=== PATIENT | male | born 1990 | race Caucasian/White ===

== ENCOUNTER 2021-09-13 07:40 | Inpatient (IN) | payer MEDICAID, OTHER ==
[2021-09-13] MEDS ORDERED: diphenhydrAMINE 25 MG CAP PO PRN (18:13)
[2021-09-13] MEDS ORDERED: HALOPERIDOL LACTATE 5 MG/ML 1 ML VIAL IM PRN (18:13)
[2021-09-13] MEDS ORDERED: ACETAMINOPHEN TAB 325 MG TAB PO PRN (18:13)
[2021-09-13] MEDS ORDERED: MAGNESIUM HYDROXIDE 2,400 MG/10 ML CUP PO PRN (18:13)
[2021-09-13] MEDS ORDERED: haloperidoL 5 MG TAB PO PRN (18:13)
[2021-09-13] MEDS ORDERED: MAG HYDROX/AL HYDROX/SIMETH 30 ML CUP PO PRN (18:13)
[2021-09-13] MEDS ORDERED: LORazepam 2 MG/ML INJ IM PRN (18:13)
[2021-09-14] MEDS: DIVALPROEX 500 MG TABLET.DR PO SCH ×3 (10:06→19:54)
[2021-09-14] MEDS: FAMOTIDINE 20 MG TAB PO SCH ×3 (10:06→19:55)
[2021-09-14] MEDS: NICOTINE 14MG/24HR PATCH TRANSDERM SCH (10:08)
[2021-09-14] MEDS: DULoxetine HCL 30 MG CAPSULE.DR PO SCH (12:50)
--- NOTE | 2021-09-14 13:34 | P.HP ---
Psychiatric H&P - . H&P Date: 09/14/21 History & Physical: Allergies Allergy/AdvReac Type Severity Reaction Status Date / Time Fish Containing Products Allergy Unknown Verified 09/13/21 18:12 Fish Vital Signs Temp 97.9 F 09/14/21 09:25 Pulse 84 09/14/21 09:25 Resp 12 09/14/21 09:25 BP 120/67 09/14/21 09:25 Pulse Ox 96 09/14/21 09:25 FiO2 Intake & Output 09/13/21 09/14/21 09/14/21 18:59 06:59 18:59 Weight 95 kg 96.9 kg 09/14/21 12:22 IDENTIFYING DATA: Patient is a 31-year-old male currently homeless, was engaged, currently unemployed. Has no kids. HPI: Patient presented to the hospital as a transfer from [facility] [place]. Patient arrived on the unit early this morning. According to APS report patient was at home and had a suicide attempt overdosing on aspirin pills approximately 100 of them. Patient had endorsed that he caught his fiance cheating on him with his neighbor. Patient was admitted involuntarily however did sign voluntary. Patient is agreeable to speak to feature writer today. He appeared to be visibly upset and in distress. He was tearful during the interview. He claims that he is feeling depressed and feels "alone" he also endorsed hopelessness and helplessness. He states that he's been "doing too much drugs". He claims that he is unemployed at this time and has financial problems as well. He states that he is very upset about his relationship with his fiance and claims that he cannot go back there. He claims that he's been using significant amount of methamphetamine approximately 1 ounce a day and also using alcohol approximately 2 cases of beer a day however last drink was over 7 days ago. He states that he also smokes cigarettes. decreased sleep, decreased appetite. He is endorsing paranoia, no delusions. Patient denies any current suicidal or homicidal ideations intent or plan. At this time patient denies any auditory or visual hallucinations. Patient denies any flight of ideas racing thoughts and increased in goal directed behavior. PAST PSYCHIATRIC HISTORY: Patient states that he has a history of depression. He claims that he used to be on antidepressants in the past however cannot remember which one. He also states that he was on a medication for paranoia. He claims that he was admitted to [facility] one half years ago. Patient denies any psychiatric outpatient follow-up. He claims that he did try to overdose once in the past and also cut his wrist in the past. PMH: As per medicine H&P ALLERGIES: as per EMR CHEMICAL DEPENDENCY HISTORY: as per HPI FAMILY PSYCHIATRIC/SUBSTANCE USE HISTORY: denies SOCIAL HISTORY: Patient was born and raised in [place] and also in [place]. He states that he completed up to the 10th grade in school. 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 He states that he was charged in the past for assault with a deadly weapon and also sexual charges and [facility]. MENTAL STATUS EXAM: General Appearance: Patient appears to be well-built, bald, unshaven, multiple tattoos, stated age is alert, in distress and tearful. Patient appears to have poor hygiene and grooming. Behavior: Patient is seated without any agitated behavior. In distress, tearful. Attempts to cooperate. Speech: Patient's speech is fluent and nonpressured. [place]. Mood/Affect: Patient reports their mood is depressed, affect is congruent and constricted. Suicidality/Homicidality: Patient denies having any homicidal ideation intent or plan. Denies any suicidal ideations intent or plan Perceptions: Patient denies any visual hallucinations and denies any auditory hallucinations Though content/process: Patient is focused on his stressors, catastrophizing, goal oriented. Memory and concentration: AOX3, grossly intact for the purposes of this session. Can spell "WORLD" backwards Judgment and insight: poor STRENGTHS/WEAKNESSES: strength is that patient is resilient. Weakness is that patient has poor judgment and is impulsive INTELLECT: average IMPRESSIONS: Major depressive disorder, with psychotic features Methamphetamine use disorder severe Alcohol use disorder severe Nicotine dependence PLAN: -Patient is admitted under voluntary status to [facility] for stabilization of psychiatric symptoms and safety. Patient has signed adult voluntary form and medication consent and is placed in patient's chart. -Medications : Will start patient on Cymbalta 30 mg daily for mood/anxiety/pain. Start Zyprexa 5 mg daily at bedtime for mood adjunct/psychosis. -Ativan and Haldol PRN for agitation/aggression -Patient was counselled on substance abuse and desired to cut back on use -Patient was informed of the risks, benefits and side effects of the medication and patient verbally consented to taking the medications. Patient signed med consent form and was placed in chart. -Internal Medicine consult to perform medical evaluation and physical. -NRT - nicotine patch -SW on board for discharge planning. Encourage patient to participate in groups to work on coping skills. 09/14/21 13:20 09/14/21 13:33
--- NOTE | 2021-09-14 17:36 | P.CONS ---
History of Present Illness - Reason for Consult Consult date: 09/14/21 Medical management - Chief Complaint Depression - History of Present Illness History of present illness: 31-year-old male with past medical history significant for depression, seizure disorder, polysubstance abuse including alcohol and methamphetamine. Patient presented to the hospital as a transfer from [facility] in [place]. Patient admitted to inpatient psych unit at [facility] today. According to APS report patient was at home and had a suicide attempt overdosing on aspirin pills approximately 100 of them. [facility]. Patient denies any chest pain or shortness of breath. He denies any nausea vomiting or abdominal pain. He denied any fever or chills. Denies recent travel sick contact PAST PSYCHIATRIC HISTORY: Patient states that he has a history of depression. He claims that he used to be on antidepressants in the past however cannot remember which one. He also states that he was on a medication for paranoia. He claims that he was admitted to [facility] one half years ago. Patient denies any psychiatric outpatient follow-up. He claims that he did try to overdose once in the past and also cut his wrist in the past. ALLERGIES: as per EMR FAMILY HISTORY LUNG CANCER IN HIS FATHER SOCIAL HISTORY: Patient was born and raised in [place] and also in [place]. He states that he completed up to the 10th grade in school. 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 He states that he was charged in the past for assault with a deadly weapon and also sexual charges and [facility]. Patient smokes 2 packs per day. He also stated that he does methamphetamine. 30 packs of beer a day and the fifth of [employer] He stated that he was drinking since he was a child. Review of systems: All 14 review of systems evaluated and all negative except for above. Physical examination: General: non toxic, no distress, appears at stated age Derm: warm, dry Head: atraumatic, normocephalic, symmetric Eyes: EOMI, no lid lag, anicteric sclera Mouth: no lip lesion, mucus membranes moist Cardiovascular: S1S2 reg, no murmur, positive posterior tibial pulse bilateral, Lungs: CTA bilateral, no rhonchi, no rales , no accessory muscle use Abdominal: soft, nontender to palpation, no guarding, no appreciable organomegaly Ext: no gross muscle atrophy, no edema, no contractures Neuro: CN II-XI grossly intact, no focal neuro deficits Psych: Alert, oriented, appropriate affect Assessment and plan: #Bipolar disorder #Major depression #Suicidal attempt -Management per psychiatry #History of seizure disorder -Patient on Depakote #Nicotine addiction -Patient smokes 2 packs per day -Recommend nicotine patch 21 mg daily #Polysubstance abuse including alcohol and methamphetamine -Patient was counseled -Psychiatry managing Medications and Allergies Allergies Allergy/AdvReac Type Severity Reaction Status Date / Time Fish Containing Products Allergy Unknown Verified 09/13/21 18:12 [Fish] Physical Exam Vitals: Vital Signs Temp Pulse Resp BP Pulse Ox 09/14/21 09:25 97.9 F 84 12 120/67 96 Intake and Output 09/14/21 09/14/21 09/14/21 06:59 14:59 22:59 Other: Weight 96.9 kg
[2021-09-14] MEDS: OLANZapine 5 MG TAB PO SCH (19:55)
--- NOTE | 2021-09-14 20:16 | XR ---
EXAMINATION TYPE: XR shoulder complete LT DATE OF EXAM: 09/14/2021 COMPARISON: NONE HISTORY: Pain TECHNIQUE: Shoulder examined in 3 projections FINDINGS: The humeral head articulates with the glenoid. Is depression of the acromion in relation to the distal clavicle a 1.5 cm. This can be compatible wit h a grade 3 separation. There may be a small avulsion suspected from the acromion inferior to the cla vicle. No additional dislocations are evident. A follow up study can be performed 7-10 days from acute trauma for continued pain. IMPRESSION: 1. Grade 3 separation of the left acromioclavicular junction. A small avulsion appears to be from the distal clavicle.
[2021-09-15] MEDS: FAMOTIDINE 20 MG TAB PO SCH ×2 (08:38→20:16)
[2021-09-15] MEDS: DIVALPROEX 500 MG TABLET.DR PO SCH ×2 (08:38→20:16)
[2021-09-15] MEDS: DULoxetine HCL 30 MG CAPSULE.DR PO SCH (08:38)
[2021-09-15] MEDS: NICOTINE 14MG/24HR PATCH TRANSDERM SCH (08:39)
--- NOTE | 2021-09-15 11:14 | P.CNOR ---
History of Present Illness - [facility] Consult date: 09/15/21 Consult reason: joint pain (Left shoulder pain.) History of present illness: This is a 31-year-old male with recent history of left shoulder injury. He states that about 2 weeks ago he was helping a neighbor up after a fall. He states he jumped over a fence and fell onto his left shoulder. He had immediate pain. He has recently been admitted to the mental health unit at [facility] and we're consulted for orthopedic evaluation of the left shoulder. Medications and Allergies Allergies Allergy/AdvReac Type Severity Reaction Status Date / Time Fish Containing Products Allergy Unknown Verified 09/13/21 18:12 [Fish] Physical Examination This is a pleasant 31-year-old male in no acute distress. He is alert and oriented 3. Exam of the left upper extremity reveals no erythema or ecchymosis. There is no soft tissue swelling noted. There is tenderness with palpation of the distal clavicle and the acromioclavicular joint. There is no palpable step-off noted. He has full for flexion and abduction of the shoulder. He has full external and internal rotation. Full elbow motion without difficulty or pain. Neurovascular status the upper extremity is intact. Results X-rays of the left shoulder reveal a slight elevation of the clavicle at the acromioclavicular joint. There is a small chip fracture noted. Findings are consistent with a grade 3 AC separation. No other bony abnormality is noted. Assessment and Plan (1) AC separation, type 3 Current Visit: Yes Status: Acute Code(s): S43.109A - UNSP DISLOCATION OF UNSP ACROMIOCLAVICULAR JOINT, INIT SNOMED Code(s): 138567302 (2) Left shoulder pain Current Visit: Yes Status: Acute Code(s): M25.512 - PAIN IN LEFT SHOULDER SNOMED Code(s): 34141728 Plan: The clinical and x-ray findings are discussed with the patient. There is no treatment indicated at this time. He is to continue to work on range of motion exercises. He may take are appropriate as needed for pain. Follow-up in one month.
--- NOTE | 2021-09-15 15:43 | P.PN ---
Progress Note - Text Progress Note Date: 09/15/21 Interval History: Patient was in group, and was directable and agreeable to speak with business writer in the office. He reports he the groups and interactions with staff have been helpful, and helped him recognize his addiction and the need for residential substance abuse treatment after discharge. He reports his drugs of choice are methamphetamine and alcohol. At this time patient denies any suicidal, or homicidal ideations, intent or plan. Patient denies any auditory or visual h allucinations and denies any paranoia or delusions. Patient denies any side effects from the medications and has been compliant with meds. Mental Status Exam: General Appearance: Patient appears to be stated age, dressed in clean, casual attire. Orientation: He is alert, oriented to person, place, time and situation. Behavior: Patient is calmly seated without any agitated behavior; cooperative. Speech: Patient's speech is fluent and nonpressured. Mood/Affect: Mood is improving mildly, affect is congruent and constricted. Suicidality/Homicidality: Patient denies having any suicidal or homicidal ideation intent or plan. Perceptions: Patient denies any visual hallucinations and denies any auditory hallucinations. Though content/process: There is no evidence of any delusional thought content and thought process is linear and goal-directed. Memory and concentration: Grossly intact for the purposes of this session Judgment and insight: Improving mildly Assessment Major depressive disorder, with psychotic features Methamphetamine use disorder severe Alcohol use disorder severe Nicotine dependence Plan: -Patient continues to meet criteria for inpatient psychiatric admission for symptom stabilization and safety. Patient has signed adult voluntary form and medication consent and was placed in patient's chart. -Medications: Continue current medications at same doses for now with plan to adjust as tolerated. -When necessary Ativan and Haldol for agitation/aggression. -NRT - nicotine patch -SW on board for discharge planning. Encouraged the patient to participate in milieu.
[2021-09-15] MEDS: OLANZapine 5 MG TAB PO SCH (20:16)
[2021-09-16] MEDS: NICOTINE 14MG/24HR PATCH TRANSDERM SCH (08:23)
[2021-09-16] MEDS: FAMOTIDINE 20 MG TAB PO SCH ×2 (08:24→22:19)
[2021-09-16] MEDS: DULoxetine HCL 30 MG CAPSULE.DR PO SCH (08:24)
[2021-09-16] MEDS: DIVALPROEX 500 MG TABLET.DR PO SCH ×2 (08:24→22:19)
--- NOTE | 2021-09-16 09:47 | P.PN ---
Progress Note - Text Progress Note Date: 09/16/21 Interval History: Patient was laying in bed this morning and was agreeable to speak to travel writer in the office. He appears to have a improvement in his affect however claims that he still feeling somewhat depressed. He claims that he is gradually improving in terms of his medications and continues to seek help. He admits that he has a problem with using methamphetamine and believes that he is unsafe to be discharged as he has "nowhere to go". He claims that he will relapse if he leaves the hospital and become suicidal again. Patient was given the number for intake to call for rehab and patient called later on this morning to do the intake over the phone. He claims that he is sleeping better with the medications and trying to go to some groups. He is not reporting any side effects at this time. Denying any delusions or paranoia. Fair appetite. At this time patient denies any suicidal, or homicidal ideations, intent or plan. Patient denies any auditory or visual hallucinations. Patient has been compliant with meds. Mental Status Exam: General Appearance: Patient appears to be stated age, dressed in clean, casual attire. Behavior: Patient is calmly seated without any agitated behavior; more cooperative. Speech: Patient's speech is fluent and nonpressured. Mood/Affect: Mood is depressed however is improving mildly, affect is congruent Suicidality/Homicidality: Patient denies having any suicidal or homicidal ideation intent or plan. Perceptions: Patient denies any visual hallucinations and denies any auditory hallucinations. Though content/process: There is no evidence of any delusional thought content and thought process is linear and goal-directed. Memory and concentration: Grossly intact for the purposes of this session, alert and oriented 3. Judgment and insight: Improving mildly Assessment Major depressive disorder, with psychotic features Methamphetamine use disorder severe Alcohol use disorder severe Nicotine dependence Plan: -Patient continues to meet criteria for inpatient psychiatric admission for symptom stabilization and safety. Patient has signed adult voluntary form and medication consent and was placed in patient's chart. -Medications: Continue with Cymbalta 30 mg daily for mood/anxiety/pain, Zyprexa 5 mg daily at bedtime for mood adjunct/psychosis/insomnia. -When necessary Ativan and Haldol for agitation/aggression. -NRT - nicotine patch -SW on board for discharge planning. Encouraged the patient to participate in milieu. Patient made the call to intake today to get into rehab. He is high risk for relapse on substances if not discharged directly to rehab. SW to follow up with intake date for rehab. Likely discharge early next week.
[2021-09-16] MEDS: IBUPROFEN 800 MG TAB PO PRN (18:37)
[2021-09-16] MEDS: OLANZapine 5 MG TAB PO SCH (22:19)
[2021-09-17] MEDS: DIVALPROEX 500 MG TABLET.DR PO SCH ×2 (08:24→20:12)
[2021-09-17] MEDS: DULoxetine HCL 30 MG CAPSULE.DR PO SCH (08:24)
[2021-09-17] MEDS: FAMOTIDINE 20 MG TAB PO SCH ×2 (08:24→20:12)
[2021-09-17] MEDS: NICOTINE 14MG/24HR PATCH TRANSDERM SCH (08:24)
--- NOTE | 2021-09-17 16:51 | P.PN ---
Progress Note - Text Progress Note Date: 09/17/21 Interval History: Patient was laying in bed this morning and was agreeable to speak to board writer in the office. He reports good mood, feels his medications are working and he is "feeling a lot better", reports good sleep and good appetite. He is attending groups, and finds them helpful. He is medication compliant and denies any side effects at this time. He denies any delusions or paranoia. At this time patient denies any suicidal, or homicidal ideations, intent or plan. Patient denies any auditory or visual hallucinations. He has been calm and cooperative with staff and peers on the unit. Mental Status Exam: General Appearance: Patient appears to be stated age, dressed in clean, casual a ttire. Orientation: Alert and oriented to person, place, time, and situation. Behavior: Patient is calmly seated without any agitated behavior; cooperative. Speech: Patient's speech is fluent and non-pressured. Mood/Affect: Mood is "good", affect is congruent Suicidality/Homicidality: Patient denies having any suicidal or homicidal ideation intent or plan. Perceptions: Patient denies any visual hallucinations and denies any auditory hallucinations. Though content/process: There is no evidence of any delusional thought content and thought process is linear and goal-directed. Memory and concentration: Grossly intact for the purposes of this session. Judgment and insight: Improving mildly Assessment Major depressive disorder, with psychotic features Methamphetamine use disorder severe Alcohol use disorder severe Nicotine dependence Plan: -Patient continues to meet criteria for inpatient psychiatric admission for symptom stabilization and safety. Patient has signed adult voluntary form and medication consent and was placed in patient's chart. -Medications: Continue with Cymbalta 30 mg daily for mood/anxiety/pain, Zyprexa 5 mg daily at bedtime for mood adjunct/psychosis/insomnia. -When necessary Ativan and Haldol for agitation/aggression. -NRT - nicotine patch -SW on board for discharge planning. Encouraged the patient to participate in milieu. Patient made the call to intake today to get into rehab. He is high risk for relapse on substances if not discharged directly to rehab. SW to follow up with intake date for rehab. Likely discharge early next week.
[2021-09-17] MEDS: LORazepam 1 MG TAB PO PRN (18:59)
[2021-09-17] MEDS: OLANZapine 5 MG TAB PO SCH (20:12)
[2021-09-18] MEDS: NICOTINE 14MG/24HR PATCH TRANSDERM SCH (08:40)
[2021-09-18] MEDS: FAMOTIDINE 20 MG TAB PO SCH ×2 (08:40→22:15)
[2021-09-18] MEDS: DULoxetine HCL 30 MG CAPSULE.DR PO SCH (08:40)
[2021-09-18] MEDS: DIVALPROEX 500 MG TABLET.DR PO SCH ×2 (08:40→22:15)
[2021-09-18] MEDS: LORazepam 1 MG TAB PO PRN ×2 (18:46→22:17)
[2021-09-18] MEDS ORDERED: diphenhydrAMINE 50 MG/ML 1 ML VIAL IM STA (21:13)
[2021-09-18] MEDS ORDERED: methylPREDNISolone SOD SUCCIN 125 MG in SODIUM CHLORIDE 0.9% 100 ML IVPB STA (21:57)
[2021-09-18] MEDS ORDERED: methylPREDNISolone SOD SUCCI 125 MG/2 ML VIAL IVP ONE (21:59)
--- NOTE | 2021-09-18 22:03 | P.PN ---
Progress Note - Text Progress Note Date: 09/18/21 Interval History: Patient was agreeable to speak to telegraphic typewriter repairer in the office. He appeared restless, a nd his face appears red with swelling under his eyes, redness and itching of both arms and legs. He reports his throat feels like it is closing, hard to swallow. He is allergic to fish, and fish items were served on the unit today; he did not eat fish, but others were eating fish around him. He was immediately given Benadryl 50 mg IM x 1 and a total of Epinephrine 0.5 mg (0.3 mg IM + 0.2 mg IV). [facility] was called and responded immediately, 1L IV NS bolus, medical doctor arrived to assess patient, and ordered Solumedrol 125 mg IV x 1. Patient responded well to initial treatment. Patient reports good mood, good sleep and good appetite. He is attending groups. He is medication compliant and denies any side effects at this time. He denies any delusions or paranoia. At this time patient denies any suicidal, or homicidal ideations, intent or plan. Patient denies any auditory or visual hallucinations. He has been calm and cooperative with staff and peers on the unit. Mental Status Exam: General Appearance: Patient appears to be stated age, dressed in clean, casual attire. Redness on face, swelling under eyes, redness on arms/legs. Orientation: Alert and oriented to person, place, time, and situation. Behavior: Patient is calmly seated without any agitated behavior; cooperative. Speech: Patient's speech is fluent and non-pressured. Mood/Affect: Mood is "good", affect is congruent Suicidality/Homicidality: Patient denies having any suicidal or homicidal ideation intent or plan. Perceptions: Patient denies any visual hallucinations and denies any auditory hallucinations. Though content/process: There is no evidence of any delusional thought content and thought process is linear and goal-directed. Memory and concentration: Grossly intact for the purposes of this session. Judgment and insight: Improving mildly Assessment Major depressive disorder, with psychotic features Methamphetamine use disorder severe Alcohol use disorder severe Nicotine dependence Anaphylactic reaction - responded to Benadryl, Epinephrine, Solumedrol, IV fluids. Plan: -Patient continues to meet criteria for inpatient psychiatric admission for symptom stabilization and safety. Patient has signed adult voluntary form and medication consent and was placed in patient's chart. -Medications: Continue with Cymbalta 30 mg daily for mood/anxiety/pain. Continue Zyprexa 5 mg daily at bedtime for mood adjunct/psychosis/insomnia. He was given Benadryl 50 mg IM x 1, Epinephrine 0.5 mg (0.3 mg IM + 0.2 mg IV), 1L IV NS bolus, Solumedrol 125 mg IV x 1. He will be placed on sitter for monitoring for the next 4 hours. -When necessary Ativan and Haldol for agitation/aggression. -NRT - nicotine patch -SW on board for discharge planning. Encouraged the patient to participate in milieu. Patient made the call to intake today to get into rehab. He is high risk for relapse on substances if not discharged directly to rehab. SW to follow up with intake date for rehab. Likely discharge early next week.
[2021-09-18] MEDS: OLANZapine 5 MG TAB PO SCH (22:15)
--- NOTE | 2021-09-19 01:49 | P.EN ---
A- team: Indication: Anaphylaxis Arrived on Scene to find: Anxious appearing patient Vital signs reviewed: BP 142/84, pulse 112, respiratory rate 24, SpO2 96% on room air Patient seen and examined at bedside. The patient reports that he believes he may have accidentally consumed some fish from the plate of another patient sitting across from him at dinner. He had complained to the nursing staff of developing a pruritic rash and facial swelling. The patient was noted to be likely having an ALLERGIC reaction, for which IV epinephrine and IV Benadryl were administered. Upon arrival at the scene, the patient's symptoms had resolved. He reported feeling anxious but otherwise denied any additional complaints. General: [non toxic], [no distress], [appears at stated age] Derm: [warm], [dry] Head: [atraumatic], [normocephalic], [symmetric] Eyes: [EOMI], [no lid lag], [anicteric sclera] Mouth: [no lip lesion], [mucus membranes moist] Cardiovascular: [S1S2 reg], [no murmur], [positive posterior tibial pulse bilateral], Lungs: [CTA bilateral], [no rhonchi, no rales] , [no accessory muscle use] Abdominal: [soft], [ nontender to palpation], [no guarding], [no appreciable organomegaly] Ext: [no gross muscle atrophy], [no edema], [no contractures] Neuro: [ CN II-XI grossly intact], [no focal neuro deficits] Psych: [Alert], [oriented], anxious Assessment: Anaphylaxis, resolved Plan: 0.5 mg of IM epinephrine administered Solu-Medrol 125 mg IV push ordered 50 mg IV push Benadryl administered Continue to monitor the patient closely with a sitter 1 L normal saline bolus ordered A Total of 35 minutes of critical care time was spent on the complex care of this patient.
[2021-09-19 03:03] VITALS: RESP 16
[2021-09-19 07:13] VITALS: TEMP 97.5
[2021-09-19] MEDS: NICOTINE 14MG/24HR PATCH TRANSDERM SCH (08:28)
[2021-09-19] MEDS: DIVALPROEX 500 MG TABLET.DR PO SCH (08:30)
[2021-09-19] MEDS: DULoxetine HCL 30 MG CAPSULE.DR PO SCH (08:30)
[2021-09-19] MEDS: FAMOTIDINE 20 MG TAB PO SCH (08:30)
[2021-09-19] MEDS: IBUPROFEN 800 MG TAB PO PRN (08:30)
[2021-09-19 09:20] VITALS: BP 141/69; PULSE 102
[2021-09-19] MEDS: LORazepam 1 MG TAB PO PRN (09:20)
[2021-09-19] MEDS ORDERED: diphenhydrAMINE 50 MG/ML 1 ML VIAL IM STA ×2 (10:45→15:13)
[2021-09-19] MEDS ORDERED: predniSONE 20 MG TAB PO SCH (11:00)
[2021-09-19] MEDS ORDERED: diphenhydrAMINE 25 MG CAP PO SCH ×2 (11:00→12:00)
--- NOTE | 2021-09-19 11:05 | P.PN ---
Progress Note - Text Progress Note Date: 09/19/21 Interval History: Patient was seen participating in group today and was agreeable to seek the wr iter. Patient claims that he is feeling a little bit irritable today however does claim that the medications are helping him overall. He states that he is able to sleep fairly throughout the night. Patient claims that he must have consumed some fish and he is very ALLERGIC to it last night. He states that he required Benadryl and steroids and was starting to get some swelling under his eyes earlier this morning. He was requesting medications to help him with withdrawal symptoms. He continues to be focused on going to rehab once he is discharged. He claims that his mood and anxiety have been improving. He is going to groups. Denying any delusions or paranoia. Fair appetite. At this time patient denies any suicidal, or homicidal ideations, intent or plan. Patient denies any auditory or visual hallucinations. Patient has been compliant with meds. Mental Status Exam: General Appearance: Patient appears to be stated age, dressed in clean, casual attire. Behavior: Patient is calmly seated without any agitated behavior; more cooperative. Speech: Patient's speech is fluent and nonpressured. Mood/Affect: Mood is depressed however is improving mildly, affect is congruent Suicidality/Homicidality: Patient denies having any suicidal or homicidal ideation intent or plan. Perceptions: Patient denies any visual hallucinations and denies any auditory hallucinations. Though content/process: There is no evidence of any delusional thought content and thought process is linear and goal-directed. Memory and concentration: Grossly intact for the purposes of this session, alert and oriented 3. Judgment and insight: Improving mildly Assessment Major depressive disorder, with psychotic features Methamphetamine use disorder severe Alcohol use disorder severe Nicotine dependence Plan: -Patient continues to meet criteria for inpatient psychiatric admission for symptom stabilization and safety. Patient has signed adult voluntary form and medication consent and was placed in patient's chart. -Medications: Cymbalta 30 mg daily for mood/anxiety/pain, Zyprexa 5 mg daily at bedtime for mood adjunct/psychosis/insomnia. added clonidine 0.1 bid prn for withdrawal sx. -benadryl prn for allergic reaction. -When necessary Ativan and Haldol for agitation/aggression. -NRT - nicotine patch -SW on board for discharge planning. Encouraged the patient to participate in milieu. He is high risk for relapse on substances if not discharged directly to rehab. SW to follow up with intake date for rehab. Likely discharge tomorrow if bed is available.
[2021-09-19] MEDS ORDERED: cloNIDine HCL 0.1 MG TAB PO PRN (11:11)
[2021-09-19 15:26] LABS: Glucose,Whole Blood 192 mg/dL (70-110)
== END 2021-09-19 15:26 | DRG 885 ==
LOC: 3MHU 09-14 09:18
PROVIDERS: ADMIT Psychiatry & Neurology Psychiatry; ATTEND Psychiatry & Neurology Psychiatry
DX: F32.3 Major depressive disorder, single episode, severe with psychotic features (principal); F10.20 Alcohol dependence, uncomplicated; F15.90 Other stimulant use, unspecified, uncomplicated; F17.210 Nicotine dependence, cigarettes, uncomplicated; F31.9 Bipolar disorder, unspecified; F41.9 Anxiety disorder, unspecified; G40.909 Epilepsy, unspecified, not intractable, without status epilepticus; L29.9 Pruritus, unspecified; S43.109A Unspecified dislocation of unspecified acromioclavicular joint, initial encounter; W19.XXXA Unspecified fall, initial encounter; Z56.0 Unemployment, unspecified; Z59.00 Homelessness unspecified

== ENCOUNTER 2021-09-19 15:26 | Inpatient (IN) | payer OTHER ==
[2021-09-19] MEDS ORDERED: MELATONIN 3 MG TABLET PO PRN (15:41)
[2021-09-19] MEDS ORDERED: NALOXONE 0.4 MG/ML 1 ML VIAL IV PRN (15:41)
--- NOTE | 2021-09-19 16:05 | P.HPIM ---
History of Present Illness H&P Date: 09/19/21 Chief Complaint: ALLERGIC reaction Patient is a 31-year-old male with a past medical history significant for depression, seizure disorder, polysubstance abuse including alcohol and methamphetamine and anaphylactic reaction due to fish. Patient was admitted to the psych unit for depression and suicide attempt. On 09/18/2021 around midnight patient had an anaphylactic reaction and the patient was given epinephrine steroid and Benadryl. Patient states that other patients were eating fish around him and he denies eating any fish. Of note patient told the physician who saw him at midnight that he actually ate some of the fish from the other patients. In the morning before he got his medications he was breaking into hives and felt as if his throat was closing and was having difficulty breathing so he was again given epinephrine steroid and Benadryl. Later in the afternoon patient was having the symptoms again and was again given epinephrine steroid and Benadryl. I told staff to transfer him to [facility]. I did speak to the patient partner who recommended no ICU at this time but to notify if patient's symptoms worsened. Review of Systems 10 ROS reviewed and are negative except as noted in HPI Medications and Allergies Allergies Allergy/AdvReac Type Severity Reaction Status Date / Time Fish Containing Products Allergy Unknown Verified 09/13/21 18:12 [Fish] Physical Exam Osteopathic Statement: *. No significant issues noted on an osteopathic structural exam other than those noted in the History and Physical/Consult. Vitals: Vital Signs Temp Pulse Resp BP Pulse Ox FiO2 09/19/21 15:48 98.2 F 115 H 24 121/56 96 35 Intake and Output 09/19/21 09/19/21 09/19/21 06:59 14:59 22:59 Other: Weight 95.254 kg General: [Alert and oriented, well nourished, mild respiratory distress]. Eye: [PERRL, EOMI, normal conjunctiva]. HENT: [Normocephalic, clear tympanic membranes, normal hearing, moist oral mucosa, no scleral icterus, no sinus tenderness]. Neck: [Supple, non-tender, no carotid bruits, no JVD, no lymphadenopathy]. Lungs: [Clear to auscultation and percussion] Heart: [Normal rate, regular rhythm, no murmur, gallop or edema]. Abdomen: [Soft, non-tender, non-distended, normal bowel sounds, no masses]. Musculoskeletal: [Normal range of motion and strength, no tenderness or swelling]. Skin: [Hives on chest and arms, swelling and puffiness around the eyes]. Neurologic: [Awake, alert, and oriented X3, CN II-XII intact]. Psychiatric: [Cooperative, appropriate mood and affect]. Assessment and Plan Assessment: #Multiple ALLERGIC reactions possible anaphylactic reactions in the past 24 hours -Suspect due to possible cross-contamination with fish as other patients around him had fish for dinner. This was almost 12 hours ago -We'll monitor patient closely on 3 S. -We'll start Benadryl, Solu-Medrol and Pepcid -IV fluids -Albuterol inhaler as needed -If patient continues to have ALLERGIC reactions after 24 hours we'll have to look for another etiology of his ALLERGIES. For now we'll resume his same meds he was getting the psych unit. #Depression with psychotic features -Resume Zyprexa and Cymbalta -Patient currently denies any suicidal or homicidal idealization so no need for surgery at this time -Consult psychiatry #Methamphetamine use disorder Alcohol use disorder -Resume Ativan as needed #Tobacco abuse -Nicotine patch CODE STATUS:full code DVT prophylaxis: mechanical Anticipated length of stay > than [address]: home A total of 50 minutes was spent on the care of this complex patient more than 50% of the time was spent in counseling and care coordination.
[2021-09-19] MEDS: LORazepam 1 MG TAB PO PRN ×2 (16:18→21:50)
[2021-09-19] MEDS: ALBUTEROL NEBULIZED 2.5 MG/3 ML INHALATION PRN (19:32)
[2021-09-19] MEDS ORDERED: SODIUM CHLORIDE 0.9% IVPB SCH (21:00)
[2021-09-19] MEDS ORDERED: METHYLPREDNISOLONE SOD SUCCIN IVPB SCH (21:00)
[2021-09-19] MEDS: diphenhydrAMINE 25 MG CAP PO SCH (21:12)
[2021-09-19] MEDS: DIVALPROEX 500 MG TABLET.DR PO SCH (21:12)
[2021-09-19] MEDS: FAMOTIDINE 20 MG TAB PO SCH (21:12)
[2021-09-19] MEDS: SODIUM CHLORIDE 0.9% 1,000 ML IV SCH ×2 (21:12→22:44)
[2021-09-19] MEDS: OLANZapine 5 MG TAB PO SCH (21:50)
[2021-09-20] MEDS: SODIUM CHLORIDE 0.9% 1,000 ML IV SCH ×3 (05:39→23:03)
[2021-09-20] MEDS: ALBUTEROL NEBULIZED 2.5 MG/3 ML INHALATION PRN ×3 (07:37→20:34)
[2021-09-20] MEDS: DULoxetine HCL 30 MG CAPSULE.DR PO SCH (09:29)
[2021-09-20] MEDS: DIVALPROEX 500 MG TABLET.DR PO SCH ×2 (09:29→20:52)
[2021-09-20] MEDS: FAMOTIDINE 20 MG TAB PO SCH ×2 (09:29→20:52)
[2021-09-20] MEDS: methylPREDNISolone SOD SUCCI 40 MG/ML 1 ML VIAL IV SCH ×2 (09:29→20:52)
[2021-09-20] MEDS: diphenhydrAMINE 25 MG CAP PO SCH ×2 (09:29→20:52)
[2021-09-20] MEDS: NICOTINE 21MG/24HR PATCH TRANSDERM SCH (09:29)
--- NOTE | 2021-09-20 11:27 | P.PN ---
Subjective Progress Note Date: 09/20/21 Pt is doing well today, swelling in face has resolved. Requiring minimal oxygen, will monitor overnight and downtitrate as able. Plan for d/c to rehab tomorrow. Gen: awake, alert HEENT: normocephalic, atraumatic, good hearing acuity, moist mucous membranes Resp: good air exchange, breathing comfortably with no accessory muscle use CVS: good distal perfusion x 4, GI: soft, NTTP, ND : no SPT, no CVAT, sinclair catheter not present MSK: no pitting edema, no clubbing Neuro: non-focal, moving all extremities Psych: cooperative, euthymic mood Assessment/plan: #Multiple ALLERGIC reactions possible anaphylactic reactions in the past 24 hours -Suspect due to possible cross-contamination with fish as other patients around him had fish for dinner. This was almost 12 hours ago -We'll monitor patient closely on 3 S. -We'll start Benadryl, Solu-Medrol and Pepcid -IV fluids -Albuterol inhaler as needed -If patient continues to have ALLERGIC reactions after 24 hours we'll have to look for another etiology of his ALLERGIES. For now we'll resume his same meds he was getting the psych unit. #Depression with psychotic features -Resume Zyprexa and Cymbalta -Patient currently denies any suicidal or homicidal idealization so no need for surgery at this time -Consult psychiatry #Methamphetamine use disorder Alcohol use disorder -Resume Ativan as needed #Tobacco abuse -Nicotine patch CODE STATUS:full code DVT prophylaxis: mechanical Anticipated length of stay > than [address]: home Objective - Vital Signs Vital signs: Vital Signs Temp 97.3 F L 09/20/21 08:00 Pulse 108 H 09/20/21 08:00 Resp 16 09/20/21 08:00 BP 119/73 09/20/21 08:00 Pulse Ox 97 09/20/21 08:00 FiO2 35 09/20/21 07:37 Intake & Output 09/19/21 09/20/21 09/20/21 18:59 06:59 18:59 Intake Total 10 240 Output Total 450 1000 1300 Balance -450 990 -1060 Weight 95.254 kg Intake: IV 10 Invasive Line 1 10 Oral 240 Output: Urine 450 1000 1300 Other: Voiding Method Urinal
[2021-09-20] MEDS: LORazepam 1 MG TAB PO PRN ×2 (12:57→21:00)
--- NOTE | 2021-09-20 14:26 | P.CN ---
Psychiatric Consult - . Consult date: 09/20/21 Consult:: 09/20/21 13:04 IDENTIFYING DATA: Patient is a 31-year-old male currently homeless, was engaged, currently unemployed. Has no kids. HPI: Patient was seen today for psych follow up as patient was initially on the MHU and transferred off yesterday due to an allergic reaction. PAtient was given steroids and benadryl and monitored on the med floors. initially patient was seen by financial underwriter for psych evaluation for admission "Patient presented to the hospital as a transfer from [facility] in [place]. Patient arrived on the unit early this morning. According to EPS report patient was at home and had a suicide attempt overdosing on aspirin pills approximately 100 of them. Patient had endorsed that he caught his fiance cheating on him with his neighbor. Patient was admitted involuntarily however did sign voluntary. Patient is agreeable to speak to financial underwriter today. He appeared to be visibly upset and in distress. He was tearful during the interview. He claims that he is feeling depressed and feels "alone" he also endorsed hopelessness and helplessness. He states that he's been "doing too much drugs". He claims that he is unemployed at this time and has financial problems as well. He states that he is very upset about his relationship with his fiance and claims that he cannot go back there. He claims that he's been using significant amount of methamphetamine approximately 1 ounce a day and also using alcohol approximately 2 cases of beer a day however last drink was over 7 days ago. He states that he also smokes cigarettes. decreased sleep, decreased appetite. He is endorsing paranoia, no delusions." Today patient was seen laying in the bed and was agreeable to speak to financial underwriter. He states that he is doing "much better" today and states that he is not having any mood or anxiety issues today. He states that he feels medications have been helping him. He claims that he is still interested in going to rehab and will likely go to more. He claims that he is able to sleep fairly last night with Benadryl. His appetite is fair. He is denying any auditory or visual hallucinations today. He is denying any suicidal or homicidal ideations intent or plan. Patient has a hsitory of using etoh and meth. PAST PSYCHIATRIC HISTORY: Patient states that he has a history of depression. He claims that he used to be on antidepressants in the past however cannot remember which one. He also states that he was on a medication for paranoia. He claims that he was admitted to [facility] one half years ago. Patient denies any psychiatric outpatient follow-up. He claims that he did try to overdose once in the past and also cut his wrist in the past. PMH: As per medicine H&P ALLERGIES: as per EMR CHEMICAL DEPENDENCY HISTORY: as per HPI FAMILY PSYCHIATRIC/SUBSTANCE USE HISTORY: denies SOCIAL HISTORY: Patient was born and raised in [place] and also in [facility]. He states that he completed up to the 10th grade in school. 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 He states that he was charged in the past for assault with a deadly weapon and also sexual charges and spent around 15 years in alf. MENTAL STATUS EXAM: General Appearance: Patient appears to be well-built, bald, unshaven, multiple tattoos, stated age is alert, no distress. Patient appears to have improving hygiene and grooming. Behavior: Patient is seated without any agitated behavior. Attempts to cooperate. Speech: Patient's speech is fluent and nonpressured. [place]. Mood/Affect: Patient reports their mood is "better", affect is congruent Suicidality/Homicidality: Patient denies having any homicidal ideation intent or plan. Denies any suicidal ideations intent or plan Perceptions: Patient denies any visual hallucinations and denies any auditory hallucinations Though content/process: Patient is goal oriented. logical future oriented. Memory and concentration: AOX3, grossly intact for the purposes of this session. Can spell "WORLD" backwards Judgment and insight: improved IMPRESSIONS: Major depressive disorder Methamphetamine use disorder severe Alcohol use disorder severe Nicotine dependence PLAN: -At this time patient DOES NOT meet criteria for inpatient psychiatric admission. Patient was already treated on the MHU and supposed to be discharged this morning to substance use rehab. -Would recommend the following medication changes/additions: continue on with current psych medications. -sill worker to provide patient with outpatient mental health/psychiatry resources for appropriate follow up upon discharge -Applications Engineering Manager spoke with patient about substance abuse and the harmful effects on medical and mental health, patient verbally understood and agreed. -patient is clear from psych standpoint to go directly to substance rehab. Should have an intake appoitnemnt tomorrow at [facility] to call and confirm this. -Psychiatry will sign off at this time -Please contact with any questions. 09/20/21 14:19
[2021-09-20] MEDS: OLANZapine 5 MG TAB PO SCH (20:52)
[2021-09-21] MEDS: SODIUM CHLORIDE 0.9% 1,000 ML IV SCH ×2 (06:20→10:13)
[2021-09-21 07:47] VITALS: BP 119/72; RESP 16; TEMP 97.7
[2021-09-21] MEDS: ALBUTEROL NEBULIZED 2.5 MG/3 ML INHALATION PRN (08:21)
[2021-09-21 08:28] VITALS: PULSE 94
[2021-09-21] MEDS: FAMOTIDINE 20 MG TAB PO SCH (08:36)
[2021-09-21] MEDS: DIVALPROEX 500 MG TABLET.DR PO SCH (08:36)
[2021-09-21] MEDS: diphenhydrAMINE 25 MG CAP PO SCH (08:36)
[2021-09-21] MEDS: NICOTINE 21MG/24HR PATCH TRANSDERM SCH (08:36)
[2021-09-21] MEDS: methylPREDNISolone SOD SUCCI 40 MG/ML 1 ML VIAL IV SCH (08:36)
[2021-09-21] MEDS: LORazepam 1 MG TAB PO PRN (08:43)
--- NOTE | 2021-09-21 09:38 | P.DS ---
Providers Date of admission: 09/19/21 15:27 Expected date of discharge: 09/21/21 Attending physician: Kayley Brewster MD Consults: 09/19/21 16:01 Consult Physician Routine Consulting Provider: Allen Shrestha Consult Reason/Comments: depression Do you want consulting provider notified?: Yes Primary care physician: Stated None Hospital Course: Discharge Diagnosis: Anaphylactic reaction Depression Seizure disorder Methamphetamine use disorder Tobacco abuse Hospital Course: Patient is a 31-year-old male with known depression, seizure disorder, and polysubstance abuse who presented to medical unit from the mental health unit after having significant ALLERGIC reaction. He did require multiple doses of epinephrine. He was admitted and monitored for 48 hours. His facial swelling resolved and his ALLERGIC reaction abated with additional steroids, Benadryl, Pepcid. He was doing well. He was seen by psychiatry who recommended patient to be discharged to a treatment facility. He was accepted at [facility]. He was determined stable for discharge home. Follow-up: Establish a primary care physician after discharge from [facility], continue take all medications as prescribed, take Medrol Dosepak. Patient seen and examined at bedside. Feeling much better. No additional throat or face swelling. He believes it may have been a reaction to fish or lotion. Vital signs reviewed and stable. General: nontoxic, no distress, appears at stated age Derm: warm, dry, multiple tatoos Head: atraumatic, normocephalic, symmetric Eyes: EOMI, no lid lag, anicteric sclera Mouth: no lip lesion, mucus membranes moist Cardiovascular: S1S2 reg, no murmur, positive posterior tibial pulse bilateral, Lungs: CTA bilateral, no rhonchi, no rales , no accessory muscle use Abdominal: soft, nontender to palpation, no guarding, no appreciable organomegaly Ext: no gross muscle atrophy, no edema, no contractures Neuro: CN II-XI grossly intact, no focal neuro deficits Psych: Alert, oriented, appropriate affect A total of 25 minutes of time were spent preparing this complex discharge summary. Patient was discharged on 09/21/21. Patient Condition at Discharge: Stable Plan - Discharge Summary Discharge Rx Participant: No New Discharge Prescriptions: New DULoxetine HCL [Cymbalta] 30 mg PO DAILY #30 cap Divalproex [Depakote] 500 mg PO BID #60 tab methylPREDNISolone Dose Pack [Medrol Dose Pack] 4 mg PO DIRECTED #21 tab OLANZapine [ZyPREXA] 5 mg PO HS #30 tab Discharge Medication List DULoxetine HCL [Cymbalta] 30 mg PO DAILY #30 cap 09/21/21 [Rx] Divalproex [Depakote] 500 mg PO BID #60 tab 09/21/21 [Rx] OLANZapine [ZyPREXA] 5 mg PO HS #30 tab 09/21/21 [Rx] methylPREDNISolone Dose Pack [Medrol Dose Pack] 4 mg PO DIRECTED #21 tab 09/21/21 [Rx] Follow up Appointment(s)/Referral(s): Zane Scruggs MD [STAFF PHYSICIAN] - As Needed (to establish a primary care if you do not have one) Activity/Diet/Wound Care/Special Instructions: Activity: as tolerated Diet: regular Special Instructions: Discharge in place to [facility] - [phone] Needs to be discharged by 1130 a.m. Will need a cab for transport. Needs to have 30 days worth of all medications sent with him at discharge. Discharge/Stand Alone Forms: Community Resources Discharge Disposition: HOME SELF-CARE
[2021-09-21] MEDS: DULoxetine HCL 30 MG CAPSULE.DR PO SCH (10:05)
== END 2021-09-21 11:43 | disposition home or self-care (01) | DRG 916 ==
LOC: 3SCARD 15:27 → 4SSUR 09-20 23:19
PROVIDERS: ADMIT Internal Medicine; ATTEND Internal Medicine
DX: T78.03XA Anaphylactic reaction due to other fish, initial encounter (principal); F32.3 Major depressive disorder, single episode, severe with psychotic features; G40.909 Epilepsy, unspecified, not intractable, without status epilepticus; F15.10 Other stimulant abuse, uncomplicated; F10.10 Alcohol abuse, uncomplicated; Z91.018 Allergy to other foods; Z91.013 Allergy to seafood
CPT/HCPCS: 94640; 94760